=== PATIENT | male | born 1960 | race African-American/Black ===

== ENCOUNTER 2018-06-07 13:39 | Emergency (ER) | payer SELFPAY ==
[~2018-06-07] VITALS: Ht 185.4 cm; Wt 114.0 kg
[2018-06-07] MEDS ORDERED: KETOROLAC 60MG/2ML VIAL IM ONE (18:00)
[2018-06-07] MEDS ORDERED: CYCLOBENZAPRINE 10MG TABLET PO ONE (18:00)
[2018-06-07] MEDS ORDERED: ONDANSETRON 4MG ODT PO ONE (18:00)
[2018-06-07 19:55] VITALS: BP 145/75
== END 2018-06-07 20:13 | disposition home or self-care (01) ==
LOC: ER 13:51
DX: M54.9 Dorsalgia, unspecified (principal)
CPT/HCPCS: 72100; 96372; 99284; J1885; Q0162

== ENCOUNTER 2022-04-18 11:19 | Inpatient (IN) | payer MEDICARE, MEDICAID ==
[~2022-04-18] VITALS: Ht 193 cm; Wt 74.4 kg
[~2022-04-18 11:19] MED LIST: ACET-2708 PO
[2022-04-18 12:07] LABS: BASOPHILS % 0.2 % (0.0-2.0); EOSINOPHILS % 0.3 % (0.0-5.0); HEMATOCRIT. 38.9 % (42.0-52.0); HEMOGLOBIN. 13.1 g/dL (14.0-18.0); LYMPHOCYTES % 10.8 % (20.0-50.0); MEAN CORPUSCULAR HEMOGLOBIN 30.1 pg (28.0-32.0); MEAN PLATELET VOLUME 9.1 fl (7.4-10.4); MONOCYTES % 9.8 % (2.0-8.0); NEUTROPHILS % 78.9 % (40.0-76.0); PLATELET 130 x1000/uL (130-400); RED BLOOD CELL COUNT 4.37 mill/uL (4.7-6.1); RED CELL DISTRIBUTION WIDTH 13.4 % (11.6-14.6)
[2022-04-18] MEDS ORDERED: CEFEPIME 2,000 MG in DEXT 5% WATER 100 ML IV SCH (12:15)
[2022-04-18] MEDS ORDERED: ACETAMINOPHEN 325MG TABLET PO ONE (12:15)
[2022-04-18] MEDS ORDERED: VANCOMYCIN 1G PREMIX 200 ML IV ONE (12:15)
[2022-04-18 12:17] LABS: CHLORIDE 105 mEq/L (98-107)
[2022-04-18 12:55] LABS: INR 1.1; PARTIAL THROMBOPLASTIN TIME 29.1 sec (23.4-31.0)
[2022-04-18] MEDS: AMPICILLIN 2000MG in SODIUM CHLORIDE 0.9% 100ML IV SCH ×3 (13:06→20:07)
[2022-04-18] MEDS ORDERED: LIDOCAINE HCL/PF 1% 10 MG/ML 5ML VIAL ONE (13:25)
[2022-04-18 14:35] LABS: GLUCOSE CSF 76 mg/dL (41-75)
[2022-04-18 15:43] LABS: CLARITY URINE CLEAR (CLEAR); COLOR URINE YELLOW (YELLOW); KETONES URINE NEGATIVE (NEGATIVE); LEUKOCYTE ESTERASE URINE NEGATIVE (NEGATIVE); NITRITE URINE NEGATIVE (NEGATIVE); OCCULT BLOOD URINE NEGATIVE (NEGATIVE); PROTEIN URINE NEGATIVE (NEGATIVE); SPECIFIC GRAVITY URINE 1.013 (1.005-1.030)
[2022-04-18] MEDS ORDERED: VANCOMYCIN 1G PREMIX 200 ML IV NR (16:00)
[2022-04-18] MEDS ORDERED: CEFTRIAXONE 2 G PREMIX 50 ML IV SCH (16:00)
[2022-04-18] MEDS ORDERED: CLONIDINE 0.1MG TABLET PO PRN (16:30)
[2022-04-18] MEDS ORDERED: HYDROCODONE/APAP 7.5/325MG 1 TAB TABLET PO PRN (16:30)
[2022-04-18] MEDS ORDERED: MAGNESIUM/ALUMINUM HYDROXIDE/SIMETHICONE 30ML UDC PO PRN (16:30)
[2022-04-18] MEDS ORDERED: DOCUSATE SODIUM 100MG CAPSULE PO PRN (16:30)
[2022-04-18] MEDS ORDERED: ONDANSETRON HCL 4MG/2ML INJ IV PRN (16:30)
[2022-04-18] MEDS ORDERED: NALOXONE HCL 0.4MG/ML VIAL IV PRN (16:45)
[2022-04-18 17:48] VITALS: BP 156/102
[2022-04-18 18:00] VITALS: BP 145/85
[2022-04-18 20:00] VITALS: BP 174/90
[2022-04-18] MEDS: ACETAMINOPHEN 325MG TABLET PO PRN (20:08)
[2022-04-18] MEDS: CEFTRIAXONE 2 G in DEXTROSE 5% WATER 50 ML IV SCH (20:08)
[2022-04-18 22:00] VITALS: BP 155/72
[2022-04-19] VITALS (13 sets, daily range): BP systolic 126–159; BP diastolic 57–91
[2022-04-19] MEDS: AMPICILLIN 2000MG in SODIUM CHLORIDE 0.9% 100ML IV SCH ×7 (00:12→23:35)
[2022-04-19] MEDS: ACETAMINOPHEN 325MG TABLET PO PRN (05:07)
[2022-04-19] MEDS: CEFTRIAXONE 2 G in DEXTROSE 5% WATER 50 ML IV SCH ×2 (05:07→17:10)
[2022-04-19 06:27] LABS: BASOPHILS % 0.1 % (0.0-2.0); EOSINOPHILS % 0.6 % (0.0-5.0); HEMATOCRIT. 39.6 % (42.0-52.0); HEMOGLOBIN. 13.2 g/dL (14.0-18.0); MEAN CORPUSCULAR HEMOGLOBIN 29.4 pg (28.0-32.0); MEAN CORPUSCULAR VOLUME 88.3 fL (80.0-94.0); MEAN PLATELET VOLUME 9.3 fl (7.4-10.4); MONOCYTES % 9.7 % (2.0-8.0); NEUTROPHILS % 80.6 % (40.0-76.0); PLATELET 121 x1000/uL (130-400); RED BLOOD CELL COUNT 4.48 mill/uL (4.7-6.1); RED CELL DISTRIBUTION WIDTH 13.4 % (11.6-14.6)
[2022-04-19 06:42] LABS: CHLORIDE 105 mEq/L (98-107)
[2022-04-19] MEDS: AMLODIPINE 10MG TABLET PO SCH (08:21)
[2022-04-19] MEDS: HYDROCODONE/ACETAMINOPHEN 5/325MG TABLET PO PRN ×2 (08:34→12:58)
[2022-04-19] MEDS ORDERED: VANCOMYCIN 1,750 MG in DEXT 5% WATER 500 ML IV SCH (09:00)
[2022-04-19] MEDS: VANCOMYCIN 1500MG in DEXTROSE 5% WATER 250ML IV SCH (12:16)
[2022-04-19] MEDS ORDERED: HALOPERIDOL LACTATE 5MG/ML VIAL IM NR (21:30)
[2022-04-19] MEDS ORDERED: LORAZEPAM 2MG/ML CPJ IV NR (21:30)
[2022-04-20] VITALS (13 sets, daily range): BP systolic 89–151; BP diastolic 51–89
[2022-04-20] MEDS: AMPICILLIN 2000MG in SODIUM CHLORIDE 0.9% 100ML IV SCH ×6 (03:52→23:46)
[2022-04-20] MEDS: CEFTRIAXONE 2 G in DEXTROSE 5% WATER 50 ML IV SCH ×2 (05:41→17:09)
[2022-04-20] MEDS: VANCOMYCIN 1500MG in DEXTROSE 5% WATER 250ML IV SCH ×2 (05:44→23:46)
[2022-04-20] MEDS ORDERED: METOPROLOL TARTRATE 50MG TABLET PO NR (08:00)
[2022-04-20] MEDS: AMLODIPINE 10MG TABLET PO SCH (08:09)
[2022-04-20] MEDS: ENOXAPARIN 120MG/0.8ML SYR SUBCUT SCH ×2 (15:02→21:40)
[2022-04-20] MEDS ORDERED: DILTIAZEM HCL 5MG/ML 5ML VIAL IV PRN (15:45)
[2022-04-20 16:27] LABS: INR 1.1; PROTHROMBIN TIME 11.8 sec (9.6-11.0)
[2022-04-20] MEDS: DILTIAZEM HCL 30MG TABLET PO SCH ×2 (17:08→23:46)
[2022-04-21] VITALS (10 sets, daily range): BP systolic 101–137; BP diastolic 60–84
[2022-04-21] MEDS: AMPICILLIN 2000MG in SODIUM CHLORIDE 0.9% 100ML IV SCH ×3 (04:48→12:06)
[2022-04-21] MEDS: CEFTRIAXONE 2 G in DEXTROSE 5% WATER 50 ML IV SCH (05:58)
[2022-04-21] MEDS: DILTIAZEM HCL 30MG TABLET PO SCH ×2 (05:58→12:06)
[2022-04-21] MEDS: ENOXAPARIN 120MG/0.8ML SYR SUBCUT SCH (09:00)
[2022-04-21] MEDS ORDERED: SODIUM CHLORIDE 0.9% 500 ML IV NR (13:00)
[2022-04-21] MEDS ORDERED: APIX5TAB4 PO (13:44)
[2022-04-21] MEDS ORDERED: APIX5TAB PO (13:45)
[2022-04-21] MEDS ORDERED: DILT30TA38 PO (13:46)
[2022-04-22] MEDS ORDERED: VANCOMYCIN 1GM PMX (XELLIA) 200 ML IV SCH (10:00)
[2022-04-25 10:27] LABS: *HSV 1 DNA PCR NEGATIVE
[2022-04-25 10:28] LABS: *HSV 2 DNA PCR NEGATIVE
== END 2022-04-21 17:07 | disposition home health service (06) | DRG 853 ==
LOC: ER 11:19 → 5EST 14:05 → EDBEDREQTM 14:07 → EDBEDREQ 14:07 → EDBEDREQSVC 14:07 → ENRESERV 14:44
PROVIDERS: ADMIT Hospitalist; ATTEND Hospitalist
PROC: 009U3ZX Drainage of Spinal Canal, Percutaneous Approach, Diagnostic (ICD-10-PCS; 2022-04-18)
PROC: B01B1ZZ Fluoroscopy of Spinal Cord using Low Osmolar Contrast (ICD-10-PCS; 2022-04-18)
PROC: 0JBQ0ZZ Excision of Right Foot Subcutaneous Tissue and Fascia, Open Approach (ICD-10-PCS; principal; 2022-04-21)
PROC: 0JBQ0ZZ Excision of Right Foot Subcutaneous Tissue and Fascia, Open Approach (ICD-10-PCS; 2022-04-21)
DX: A41.9 Sepsis, unspecified organism (principal); G03.0 Nonpyogenic meningitis; I82.532 Chronic embolism and thrombosis of left popliteal vein; N17.9 Acute kidney failure, unspecified; S90.911A Unspecified superficial injury of right ankle, initial encounter; I87.8 Other specified disorders of veins; I10 Essential (primary) hypertension; I73.9 Peripheral vascular disease, unspecified; Z20.822 Contact with and (suspected) exposure to COVID-19; T36.8X5A Adverse effect of other systemic antibiotics, initial encounter; I48.91 Unspecified atrial fibrillation; Z88.2 Allergy status to sulfonamides; Z88.1 Allergy status to other antibiotic agents; Z79.899 Other long term (current) drug therapy
CPT/HCPCS: 36415; 62328; 73610; 80048; 80053; 80202; 81003; 82945; 83605; 84145; 84157; 85025; 85651; 86140; 86592; 87070; 87077; 87426; 87529; 87899; 93005; 93306; 93970; 99291; C9803; J0290; J0692; J0696; J1650; J2405; J3370; J3490; J7050; J7060

== ENCOUNTER 2023-10-24 14:18 | Emergency (ER) | payer MEDICARE, MEDICAID ==
[~2023-10-24] VITALS: Ht 193 cm; Wt 117.0 kg
[~2023-10-24 14:18] MED LIST changes: +APIX5TAB4 PO; +DILT30TA37 PO
[2023-10-24 14:43] VITALS: O2SAT 99
[2023-10-24] MEDS ORDERED: AMOX1TAB16 MT (16:01)
[2023-10-24] MEDS ORDERED: NAPR-1129 MT (16:01)
[2023-10-24 16:31] VITALS: BP 166/96; PULSE 79; RESP 14; TEMP 98.6
== END 2023-10-24 16:37 | disposition home or self-care (01) ==
LOC: ER 14:18
DX: K04.7 Periapical abscess without sinus (principal); Z98.890 Other specified postprocedural states; Z88.2 Allergy status to sulfonamides; Z88.8 Allergy status to other drugs, medicaments and biological substances
CPT/HCPCS: 99283

== ENCOUNTER 2024-08-18 12:02 | Emergency (ER) | payer MEDICARE, MEDICAID ==
[~2024-08-18] VITALS: Ht 193 cm; Wt 110.0 kg
[~2024-08-18 12:02] MED LIST changes: +AMOX1TAB16 MT; +NAPR-1129 MT
[2024-08-18 12:04] VITALS: O2SAT 99
[2024-08-18] MEDS ORDERED: AMOX1TAB16 MT (13:41)
[2024-08-18 14:10] VITALS: TEMP 36.89184
[2024-08-18 14:16] VITALS: BP 144/84; PULSE 78; RESP 12
[2024-08-18] MEDS: HYDROCODONE/ACETAMINOPHEN 5/325MG TABLET PO ONE (14:16)
== END 2024-08-18 14:16 | disposition home or self-care (01) ==
LOC: ER 12:02
DX: K04.7 Periapical abscess without sinus (principal); I10 Essential (primary) hypertension; Z88.1 Allergy status to other antibiotic agents; Z88.2 Allergy status to sulfonamides; Z98.890 Other specified postprocedural states; Z79.899 Other long term (current) drug therapy
CPT/HCPCS: 99283